=== PATIENT | female | born 1940 | race Caucasian/White ===

== ENCOUNTER → 2017-08-13 | Day surgery (SDC) | payer OTHER ==
--- NOTE | 2017-08-14 10:27 | PATH ---
Surgical Pathology Report Patient Name: ARIELA TRAYLOR [facility]. Rec. #: [id number] /Age/Gender: 1940 (Age: 77) / F Account: [id number] Location: [facility] Taken: 08/13/2017 Received: 08/13/2017 Reported: 08/14/2017 Physicians: Byron Holt M.D. Specimen(s) Received LEFT BREAST CORE BIOPSY AT 1:00 Clinical History Nonpalpable lesion Ultrasound findings: Suspicious Final Diagnosis LEFT BREAST, 1:00-3:00, ULTRASOUND GUIDED NEEDLE CORE BIOPSY: BENIGN BREAST TISSUE WITH FIBROCYSTIC CHANGES INCLUDING STROMAL FIBROSIS, DUCTAL DILATATION, AND PROMINENT CYSTIC APOCRINE METAPLASIA. Electronically Signed Marshall Eastman M.D. Gross Description Received in formalin labeled "left 1:00," are 4 leiva-yellow, cylindrical portions of fibroadipose tissue ranging from 0.9-1.8 cm in length and averaging 0.1 cm in diameter. The specimens are submitted in toto in one cassette. Time to formalin fixation: Less than one minute Total formalin fixation time: Approximately 7 hours. /08/13/201708/13/2017
== END | disposition home or self-care (01) ==
LOC: JRADUS-SUR 08:57
PROVIDERS: ATTEND Surgery Surgical Oncology
PROC: 0HBU3ZX Excision of Left Breast, Percutaneous Approach, Diagnostic (ICD-10-PCS; principal; 2017-08-13)
DX: N60.12 Diffuse cystic mastopathy of left breast (principal); N60.32 Fibrosclerosis of left breast; N64.89 Other specified disorders of breast; N63.21 Unspecified lump in the left breast, upper outer quadrant
CPT/HCPCS: 19083; 88305-TC; G0206-TC